=== PATIENT | female | born 1995 | race Caucasian/White ===

== ENCOUNTER 2018-11-04 14:35 | Observation (INO) ==
[2018-11-04 15:19] LABS: Bilirubin,Urine Negative (Negative); Blood,Urine Negative (Negative); Clarity,Urine Cloudy (Clear); Color,Urine Yellow (Yellow); Glucose,Urine (UA) Normal (Normal); Ketones,Urine Negative (Negative); Leukocyte Esterase,Urine Small (Negative); Nitrite,Urine Negative (Negative); PH,Urine 7.5 pH Units (5.0-8.0); Protein,Urine Negative (Neg-Trace); Specific Gravity,Urine 1.011 (1.010-1.025); Urobilinogen,Urine Normal (Normal)
[2018-11-04 15:21] LABS: Bacteria,Urine Moderate per hpf (None-Few); Hyaline Casts,Urine None Seen per lpf (None-Few); RBC,Urine 0-3 per hpf (0-3); Squamous Epithelial Cell,Urine Many per lpf (None-Few); WBC,Urine 15-30 per hpf (0-3)
[2018-11-04 15:28] LABS: Amphetamine Screen,Urine Negative ng/mL (Cutoff=1000); Barbiturate Screen,Urine Negative ng/mL (Cutoff=200); Benzodiazepines Screen,Urine Negative ng/mL (Cutoff=200); Cannabinoid Screen,Urine Negative ng/mL (Cutoff = 50); Cocaine Screen,Urine Negative ng/mL (Cutoff= 300); Opiate Screen,Urine Negative ng/mL (Cutoff=300); Phencyclidine Screen,Urine Negative ng/mL (Cutoff=25)
== END 2018-11-04 16:38 | disposition home or self-care (01) ==
LOC: 1NENULAB → MERGE 14:35
PROVIDERS: ADMIT Obstetrics & Gynecology; ATTEND Obstetrics & Gynecology

== ENCOUNTER 2018-11-06 10:33 | Observation (INO) ==
[2018-11-06 11:22] LABS: Bilirubin,Urine Negative (Negative); Blood,Urine Trace (Negative); Clarity,Urine Cloudy (Clear); Color,Urine Yellow (Yellow); Glucose,Urine (UA) Normal (Normal); Ketones,Urine Negative (Negative); Leukocyte Esterase,Urine Moderate (Negative); Nitrite,Urine Negative (Negative); PH,Urine 7.5 pH Units (5.0-8.0); Protein,Urine Negative (Neg-Trace); Specific Gravity,Urine 1.013 (1.010-1.025); Urobilinogen,Urine Normal (Normal)
[2018-11-06 11:26] LABS: Bacteria,Urine Many per hpf (None-Few); Hyaline Casts,Urine None Seen per lpf (None-Few); RBC,Urine 0-3 per hpf (0-3); Squamous Epithelial Cell,Urine Many per lpf (None-Few); WBC,Urine 50-100 per hpf (0-3)
[2018-11-06 11:30] LABS: Amphetamine Screen,Urine Negative ng/mL (Cutoff=1000); Barbiturate Screen,Urine Negative ng/mL (Cutoff=200); Benzodiazepines Screen,Urine Negative ng/mL (Cutoff=200); Cannabinoid Screen,Urine Negative ng/mL (Cutoff = 50); Cocaine Screen,Urine Negative ng/mL (Cutoff= 300); Opiate Screen,Urine Negative ng/mL (Cutoff=300); Phencyclidine Screen,Urine Negative ng/mL (Cutoff=25)
[2018-11-06 11:54] LABS: Basophils % 0.3 %; Eosinophils # 0.1 K/mcL (0.0-0.6); Eosinophils % 0.9 %; Hemoglobin 11.3 g/dL (11.5-15.4); Immature Granulocytes % 0.5 % (0-4); Mean Corpuscular HGB Conc 34.2 g/dL (31.6-35.5); Mean Corpuscular Hemoglobin 30.8 pg (28.0-33.3); Mean Corpuscular Volume 89.9 fL (83.0-100.0); Mean Platelet Volume 10.2 fL (9.4-12.4); Monocytes # 0.5 K/mcL (0.0-1.3); Monocytes % 6.8 %; Neutrophils # 5.9 K/mcL (1.6-8.9); Platelet Count 127 K/mcL (140-400); Red Blood Count 3.67 M/mcL (3.82-4.97); Red Cell Distribution Width 14.8 % (11.5-14.5); Segmented Neutrophils % 78.5 %; White Blood Count 7.5 K/mcL (4.3-11.1)
[2018-11-06 12:02] LABS: Protein/Creatinine Ratio,Urine 0.41 mg/mg (0.00-0.20)
[2018-11-06 12:14] LABS: Alanine Aminotransferase 9 Units/L (7-52); Aspartate Amino Transferase 12 Units/L (13-39); BUN/Creatinine Ratio 11 (6-26); Blood Urea Nitrogen 6 mg/dL (6-20); Lactate Dehydrogenase 140 Units/L (140-271); Uric Acid 5.6 mg/dL (2.3-7.6); eGFR For African Americans > 60 (> 60); eGFR For Non-African Americans > 60 (> 60)
[2018-11-06 12:36] LABS: Candida DNA Not Detected (Not Detect); Gardnerella DNA Not Detected (Not Detect); Trichomonas DNA Not Detected (Not Detect)
== END 2018-11-06 13:23 | disposition home or self-care (01) ==
LOC: 1NENULAB → MERGE 10:33
PROVIDERS: ADMIT Advanced Practice Midwife; ATTEND Advanced Practice Midwife

== ENCOUNTER 2018-11-13 18:34 | Inpatient (IN) ==
[2018-11-13 13:43] LABS: Basophils % 0.1 %; Eosinophils % 0.4 %; Hematocrit 31.9 % (35.3-44.9); Hemoglobin 11.2 g/dL (11.5-15.4); Immature Granulocytes % 1.1 % (0-4); Lymphocytes % 14.5 %; Mean Corpuscular HGB Conc 35.1 g/dL (31.6-35.5); Mean Corpuscular Hemoglobin 30.7 pg (28.0-33.3); Mean Corpuscular Volume 87.4 fL (83.0-100.0); Mean Platelet Volume 10.2 fL (9.4-12.4); Monocytes # 0.5 K/mcL (0.0-1.3); Monocytes % 6.5 %; Neutrophils # 5.6 K/mcL (1.6-8.9); Platelet Count 130 K/mcL (140-400); Red Blood Count 3.65 M/mcL (3.82-4.97); Red Cell Distribution Width 14.5 % (11.5-14.5); Segmented Neutrophils % 77.4 %; White Blood Count 7.2 K/mcL (4.3-11.1)
[2018-11-13 13:56] LABS: Alanine Aminotransferase 9 Units/L (7-52); Aspartate Amino Transferase 14 Units/L (13-39); BUN/Creatinine Ratio 15 (6-26); Blood Urea Nitrogen 7 mg/dL (6-20); Lactate Dehydrogenase 139 Units/L (140-271); Uric Acid 5.5 mg/dL (2.3-7.6); eGFR For African Americans > 60 (> 60); eGFR For Non-African Americans > 60 (> 60)
[2018-11-13 13:56] LABS: Amphetamine Screen,Urine Negative ng/mL (Cutoff=1000); Barbiturate Screen,Urine Negative ng/mL (Cutoff=200); Benzodiazepines Screen,Urine Negative ng/mL (Cutoff=200); Cannabinoid Screen,Urine Negative ng/mL (Cutoff = 50); Cocaine Screen,Urine Negative ng/mL (Cutoff= 300); Creatinine,Urine 48 mg/dL; Opiate Screen,Urine Negative ng/mL (Cutoff=300); Phencyclidine Screen,Urine Negative ng/mL (Cutoff=25); Protein/Creatinine Ratio,Urine 0.42 mg/mg (0.00-0.20)
[~2018-11-13 18:34] MED LIST: *HR* Nalbuphine 10 MG/ML AMPUL IVP PRN; Famotidine 20 MG/2 ML VIAL IVP PRN; Lidocaine 1% 20 ML MDV INFILT PRN; Metoclopramide 10 MG/2 ML VIAL IVP PRN; Naloxone 0.4 MG/ML INJ IVP PRN; Ondansetron 4 MG/2 ML VIAL IVP PRN
[2018-11-13] MEDS ORDERED: Ringers Solution, Lactated 1,000 ML IVC SCH (18:45)
[2018-11-13] MEDS ORDERED: Epidural Premix (fent/bupiv) 110 ML EP SCH (18:45)
[2018-11-13] MEDS ORDERED: Oxytocin 20 units/ LR 1000 mL 20 UNIT/1,000 ML BAG IVC ONE (20:09)
[2018-11-13 20:24] LABS: Amphetamine Screen,Urine Negative ng/mL (Cutoff=1000); Barbiturate Screen,Urine Negative ng/mL (Cutoff=200); Benzodiazepines Screen,Urine Negative ng/mL (Cutoff=200); Cannabinoid Screen,Urine Negative ng/mL (Cutoff = 50); Cocaine Screen,Urine Negative ng/mL (Cutoff= 300); Opiate Screen,Urine Negative ng/mL (Cutoff=300); Phencyclidine Screen,Urine Negative ng/mL (Cutoff=25)
[2018-11-14] MEDS ORDERED: Oxytocin 20 units/ LR 1000 mL 20 UNIT/1,000 ML BAG IVC ONE (14:32)
[2018-11-14] MEDS ORDERED: Azithromycin 500 MG in 0.9 % Sodium Chloride 250 ML IVPB ONE (20:29)
[2018-11-14] MEDS ORDERED: ceFAZolin 3,000 MG in Water for inj. (sterile) 30 ML IVP ONE (20:29)
[2018-11-14] MEDS ORDERED: *HR* Morphine Sulfate/PF 10 MG/10 ML AMPUL ONE (20:31)
[2018-11-14] MEDS ORDERED: EPHEDrine 50 MG/ML VIAL ONE (20:32)
[2018-11-14] MEDS ORDERED: *HR* FentaNYL (PF) 100 MCG/2 ML VIAL ONE (20:32)
[2018-11-14] MEDS ORDERED: *HR* Oxytocin 10 UNIT/ML VIAL IM ONE (20:33)
[2018-11-14] MEDS ORDERED: Ondansetron 4 MG/2 ML VIAL ONE (20:33)
[2018-11-14] MEDS ORDERED: Ringers Solution, Lactated 2,000 ML ONE (20:44)
[2018-11-14] MEDS ORDERED: *HR* OxyCODONE/APAP 5/325 TABLET PO PRN (20:49)
[2018-11-14] MEDS ORDERED: Ondansetron 4 MG/2 ML VIAL IVP PRN (20:49)
[2018-11-14] MEDS ORDERED: Morphine Sulfate 2 MG/ML SYRINGE IVP PRN (20:49)
[2018-11-14] MEDS ORDERED: Acetaminophen IV 1,000 MG/100 ML INFUS..BTL IVPB ONE (20:50)
[2018-11-15] MEDS ORDERED: Oxytocin 20 units/ LR 1000 mL 20 UNIT/1,000 ML BAG IVC ONE (00:22)
[2018-11-15] MEDS ORDERED: Simethicone 80 MG TAB.CHEW PO PRN (01:26)
[2018-11-15] MEDS ORDERED: *HR* OxyCODONE Immed Rel 5 MG TABLET PO PRN (01:26)
[2018-11-15] MEDS ORDERED: Ondansetron 4 MG/2 ML VIAL IVP PRN (01:26)
[2018-11-15] MEDS ORDERED: Metoclopramide 10 MG/2 ML VIAL IVP PRN (01:26)
[2018-11-15] MEDS ORDERED: Acetaminophen 325 MG TABLET PO SCH (01:26)
[2018-11-15] MEDS ORDERED: Rho Immune Globulin 1,500 UNIT SYRINGE IM ONE (01:26)
[2018-11-15] MEDS ORDERED: Oxytocin 20 units/ LR 1000 mL 20 UNIT/1,000 ML BAG IVC SCH (01:26)
[2018-11-15] MEDS: Ibuprofen 600 MG TABLET PO SCH ×3 (05:20→21:09)
[2018-11-15 06:44] LABS: Basophils % 0.2 %; Eosinophils % 0.1 %; Hematocrit 28.4 % (35.3-44.9); Hemoglobin 9.9 g/dL (11.5-15.4); Immature Granulocytes % 0.9 % (0-4); Lymphocytes % 10.6 %; Mean Corpuscular HGB Conc 34.9 g/dL (31.6-35.5); Mean Corpuscular Hemoglobin 30.6 pg (28.0-33.3); Mean Corpuscular Volume 87.7 fL (83.0-100.0); Monocytes # 0.5 K/mcL (0.0-1.3); Monocytes % 5.2 %; Neutrophils # 7.6 K/mcL (1.6-8.9); Platelet Count 116 K/mcL (140-400); Red Blood Count 3.24 M/mcL (3.82-4.97); Red Cell Distribution Width 14.5 % (11.5-14.5); White Blood Count 9.1 K/mcL (4.3-11.1)
[2018-11-15] MEDS: metroNIDAZOLE 500 MG TABLET PO SCH ×3 (08:03→21:15)
[2018-11-15] MEDS: cephALEXin 500 MG CAPSULE PO SCH ×3 (08:04→21:15)
[2018-11-15] MEDS: Prenatal Vit/FA 1 EACH TABLET PO SCH (08:04)
[2018-11-15] MEDS: Acetaminophen 325 MG TABLET PO SCH (21:08)
[2018-11-16] MEDS: cephALEXin 500 MG CAPSULE PO SCH ×4 (02:05→19:29)
[2018-11-16] MEDS: metroNIDAZOLE 500 MG TABLET PO SCH ×4 (02:05→19:29)
[2018-11-16] MEDS: Ibuprofen 600 MG TABLET PO SCH ×4 (02:13→19:28)
[2018-11-16] MEDS: Acetaminophen 325 MG TABLET PO SCH ×5 (02:13→19:29)
[2018-11-16 07:27] LABS: Basophils % 0.2 %; Eosinophils # 0.1 K/mcL (0.0-0.6); Eosinophils % 1.3 %; Hematocrit 27.3 % (35.3-44.9); Hemoglobin 9.4 g/dL (11.5-15.4); Immature Granulocytes % 0.6 % (0-4); Lymphocytes # 0.9 K/mcL (0.6-4.6); Mean Corpuscular HGB Conc 34.4 g/dL (31.6-35.5); Mean Corpuscular Hemoglobin 31.2 pg (28.0-33.3); Mean Corpuscular Volume 90.7 fL (83.0-100.0); Mean Platelet Volume 9.7 fL (9.4-12.4); Monocytes # 0.5 K/mcL (0.0-1.3); Monocytes % 5.9 %; Neutrophils # 6.9 K/mcL (1.6-8.9); Platelet Count 122 K/mcL (140-400); Red Blood Count 3.01 M/mcL (3.82-4.97); Red Cell Distribution Width 14.9 % (11.5-14.5); White Blood Count 8.5 K/mcL (4.3-11.1)
[2018-11-16 07:44] LABS: Alanine Aminotransferase 8 Units/L (7-52); Aspartate Amino Transferase 13 Units/L (13-39); BUN/Creatinine Ratio 12 (6-26); Blood Urea Nitrogen 7 mg/dL (6-20); Lactate Dehydrogenase 151 Units/L (140-271); Uric Acid 6.1 mg/dL (2.3-7.6); eGFR For African Americans > 60 (> 60); eGFR For Non-African Americans > 60 (> 60)
[2018-11-16] MEDS: Prenatal Vit/FA 1 EACH TABLET PO SCH (09:49)
[2018-11-17] MEDS: Acetaminophen 325 MG TABLET PO SCH ×3 (00:25→11:52)
[2018-11-17] MEDS: Ibuprofen 600 MG TABLET PO SCH ×3 (00:25→11:52)
[2018-11-17 08:42] VITALS: BP 128/89
[2018-11-17] MEDS: cephALEXin 500 MG CAPSULE PO SCH (09:14)
[2018-11-17] MEDS: Prenatal Vit/FA 1 EACH TABLET PO SCH (09:15)
[2018-11-17] MEDS: metroNIDAZOLE 500 MG TABLET PO SCH (09:15)
== END 2018-11-17 12:25 | disposition home or self-care (01) | DRG 788 ==
LOC: 1NENULAB → MERGE 18:34 → 1NENULAB 20:10 → 1NENUOBS 11-15 01:20
PROVIDERS: ADMIT Registered Nurse; ATTEND Registered Nurse

== ENCOUNTER → 2021-07-06 12:36 | Observation (INO) ==
[2021-07-06 10:09] LABS: Basophils % 0.3 %; Eosinophils % 0.4 %; Hematocrit 34.8 % (35.3-44.9); Hemoglobin 11.6 g/dL (11.5-15.4); Immature Granulocytes % 0.6 % (0-4); Lymphocytes % 13.5 %; Mean Corpuscular HGB Conc 33.3 g/dL (31.6-35.5); Mean Corpuscular Hemoglobin 28.5 pg (28.0-33.3); Mean Corpuscular Volume 85.5 fL (83.0-100.0); Mean Platelet Volume 10.1 fL (9.4-12.4); Monocytes # 0.4 K/mcL (0.0-1.3); Monocytes % 5.7 %; Neutrophils # 5.7 K/mcL (1.6-8.9); Platelet Count 156 K/mcL (140-400); Red Blood Count 4.07 M/mcL (3.82-4.97); Red Cell Distribution Width 14.8 % (11.5-14.5); Segmented Neutrophils % 79.5 %; White Blood Count 7.2 K/mcL (4.3-11.1)
[2021-07-06 10:17] LABS: Protein/Creatinine Ratio,Urine 0.27 mg/mg (0.00-0.20)
[2021-07-06 10:28] LABS: Alanine Aminotransferase 7 Units/L (7-52); Aspartate Amino Transferase 11 Units/L (13-39); BUN/Creatinine Ratio 15 (6-26); Blood Urea Nitrogen 8 mg/dL (6-20); Lactate Dehydrogenase 131 Units/L (140-271); Uric Acid 4.4 mg/dL (2.3-7.6); eGFR For African Americans > 60 (> 60); eGFR For Non-African Americans > 60 (> 60)
== END | disposition home or self-care (01) ==
LOC: 1NENULAB
PROVIDERS: ADMIT Obstetrics & Gynecology; ATTEND Obstetrics & Gynecology

== ENCOUNTER 2021-07-16 07:26 | Inpatient (IN) ==
[2021-07-16] MEDS ORDERED: Metoclopramide 10 MG/2 ML VIAL IVP ONE (07:30)
[2021-07-16] MEDS ORDERED: Famotidine 20 MG/2 ML VIAL IVP ONE (07:30)
[2021-07-16] MEDS ORDERED: Ringers Solution, Lactated 1,000 ML IVC ONE (07:30)
[2021-07-16] MEDS ORDERED: CeFAZolin 2,000 MG/120 ML BAG IVPB ONE (07:30)
[2021-07-16] MEDS ORDERED: OXYTOCIN/RINGERS LACTATE 10 UNIT/166.6 ML BAG IVC ONE (07:30)
[2021-07-16] MEDS ORDERED: Ringers Solution, Lactated 1,000 ML ONE ×2 (08:23→09:01)
[2021-07-16 08:31] LABS: Basophils % 0.2 %; Eosinophils % 0.5 %; Hematocrit 35.5 % (35.3-44.9); Hemoglobin 11.9 g/dL (11.5-15.4); Immature Granulocytes % 0.9 % (0-4); Lymphocytes # 1.2 K/mcL (0.6-4.6); Lymphocytes % 15.4 %; Mean Corpuscular HGB Conc 33.5 g/dL (31.6-35.5); Mean Corpuscular Hemoglobin 28.7 pg (28.0-33.3); Mean Corpuscular Volume 85.7 fL (83.0-100.0); Mean Platelet Volume 10.5 fL (9.4-12.4); Monocytes # 0.4 K/mcL (0.0-1.3); Monocytes % 5.2 %; Neutrophils # 6.2 K/mcL (1.6-8.9); Platelet Count 144 K/mcL (140-400); Red Blood Count 4.14 M/mcL (3.82-4.97); Red Cell Distribution Width 14.9 % (11.5-14.5); Segmented Neutrophils % 77.8 %
[2021-07-16] MEDS ORDERED: *HR* HYDROmorphone PF 0.5 MG/0.5 ML SYRINGE IVP PRN (08:32)
[2021-07-16] MEDS ORDERED: Promethazine 6.25 MG in Water for inj. (sterile) 20 ML IVPB PRN (08:32)
[2021-07-16] MEDS ORDERED: Acetaminophen IV 1,000 MG/100 ML BAG IVPB PRN (08:32)
[2021-07-16 08:41] LABS: Influenza A PCR Negative (Negative); Influenza B PCR Negative (Negative); Resp. Syncytial Virus PCR Negative (Negative)
[2021-07-16 08:51] LABS: SARS-CoV-2 by PCR (In House) Negative (Negative)
[2021-07-16] MEDS ORDERED: Ketorolac 30 MG/ML VIAL ONE (09:01)
[2021-07-16] MEDS ORDERED: Ondansetron 4 MG/2 ML VIAL ONE (09:01)
[2021-07-16] MEDS ORDERED: *HR* Midazolam HCl 2 MG/2 ML VIAL ONE (09:01)
[2021-07-16] MEDS ORDERED: *HR* Morphine Sulfate/PF 10 MG/10 ML AMPUL ONE (09:01)
[2021-07-16] MEDS ORDERED: Acetaminophen IV 1,000 MG/100 ML BAG IVPB ONE (09:01)
[2021-07-16] MEDS ORDERED: *HR* FentaNYL (PF) 100 MCG/2 ML VIAL ONE (09:02)
[2021-07-16] MEDS ORDERED: EPHEDrine 50 MG/ML VIAL ONE (09:05)
[2021-07-16] MEDS ORDERED: *HR* Oxytocin 10 UNIT/ML VIAL ONE (09:06)
[2021-07-16 09:48] LABS: Amphetamine Screen,Urine Negative ng/mL (Cutoff=1000); Barbiturate Screen,Urine Negative ng/mL (Cutoff=200); Benzodiazepines Screen,Urine Negative ng/mL (Cutoff=200); Cannabinoid Screen,Urine Negative ng/mL (Cutoff = 50); Cocaine Screen,Urine Negative ng/mL (Cutoff= 300); Opiate Screen,Urine Negative ng/mL (Cutoff=300); Phencyclidine Screen,Urine Negative ng/mL (Cutoff=25)
[2021-07-16] MEDS ORDERED: Ondansetron 4 MG/2 ML VIAL IVP PRN ×2 (10:41→16:41)
[2021-07-16] MEDS ORDERED: *HR* OxyCODONE Immed Rel 5 MG TABLET PO PRN ×2 (10:41→16:41)
[2021-07-16] MEDS ORDERED: Naloxone 0.4 MG/ML INJ IVP PRN ×2 (10:41→16:41)
[2021-07-16] MEDS ORDERED: Rho Immune Globulin 1,500 UNIT SYRINGE IM ONE (10:41)
[2021-07-16] MEDS ORDERED: Simethicone 80 MG TAB.CHEW PO PRN (10:41)
[2021-07-16] MEDS ORDERED: Acetaminophen 325 MG TABLET PO SCH (10:45)
[2021-07-16] MEDS ORDERED: Ringers Solution, Lactated 1,000 ML IVC SCH (10:45)
[2021-07-16] MEDS ORDERED: Ibuprofen 600 MG TABLET PO SCH (13:42)
[2021-07-16] MEDS ORDERED: metroNIDAZOLE 500 MG TABLET PO SCH (15:00)
[2021-07-16] MEDS ORDERED: cephALEXin 500 MG CAPSULE PO SCH (15:00)
[2021-07-16] MEDS: Acetaminophen 325 MG TABLET PO SCH ×2 (17:49→23:00)
[2021-07-16] MEDS: Ibuprofen 600 MG TABLET PO SCH (20:00)
[2021-07-16] MEDS: metroNIDAZOLE 500 MG TABLET PO SCH (20:45)
[2021-07-16] MEDS: cephALEXin 500 MG CAPSULE PO SCH (20:46)
[2021-07-16] MEDS: *HR* Enoxaparin 60 MG/0.6 ML SYRINGE SQ SCH (20:46)
[2021-07-16] MEDS ORDERED: *HR* Enoxaparin 60 MG/0.6 ML SYRINGE SQ SCH (21:00)
[2021-07-17] MEDS: Acetaminophen 325 MG TABLET PO SCH ×4 (04:11→22:55)
[2021-07-17] MEDS: Ibuprofen 600 MG TABLET PO SCH ×4 (04:12→22:54)
[2021-07-17 05:32] LABS: Basophils % 0.1 %; Eosinophils % 0.2 %; Immature Granulocytes % 0.4 % (0-4); Lymphocytes # 1.3 K/mcL (0.6-4.6); Lymphocytes % 15.6 %; Mean Corpuscular HGB Conc 32.2 g/dL (31.6-35.5); Mean Corpuscular Hemoglobin 28.5 pg (28.0-33.3); Mean Corpuscular Volume 88.5 fL (83.0-100.0); Mean Platelet Volume 10.6 fL (9.4-12.4); Monocytes # 0.5 K/mcL (0.0-1.3); Monocytes % 6.1 %; Neutrophils # 6.2 K/mcL (1.6-8.9); Nucleated Red Blood Cells 0.5 /100 WBC (0); Platelet Count 120 K/mcL (140-400); Red Blood Count 3.05 M/mcL (3.82-4.97); Red Cell Distribution Width 15.2 % (11.5-14.5); Segmented Neutrophils % 77.6 %
[2021-07-17 05:38] LABS: Hemoglobin 8.7 g/dL (11.5-15.4)
[2021-07-17] MEDS: *HR* Enoxaparin 60 MG/0.6 ML SYRINGE SQ SCH ×2 (07:52→20:30)
[2021-07-17] MEDS: metroNIDAZOLE 500 MG TABLET PO SCH ×3 (07:53→20:30)
[2021-07-17] MEDS: Simethicone 80 MG TAB.CHEW PO PRN ×2 (07:53→16:18)
[2021-07-17] MEDS: Prenatal Vit/FA 1 EACH TABLET PO SCH (07:54)
[2021-07-17] MEDS: cephALEXin 500 MG CAPSULE PO SCH ×3 (07:54→20:30)
[2021-07-17] MEDS ORDERED: Prenatal Vit/FA 1 EACH TABLET PO SCH (09:00)
[2021-07-17] MEDS: Oxytocin 30 UNIT/503 ML BAG IVC SCH ×6 (10:35→16:06)
[2021-07-17] MEDS: Ringers Solution, Lactated 1,000 ML IVC SCH ×2 (10:38→10:39)
[2021-07-18] MEDS: Acetaminophen 325 MG TABLET PO SCH (05:04)
[2021-07-18] MEDS: Ibuprofen 600 MG TABLET PO SCH (05:04)
[2021-07-18 07:25] VITALS: BP 123/81; PULSE 102; TEMP 98.1; O2SAT 98
[2021-07-18] MEDS: Prenatal Vit/FA 1 EACH TABLET PO SCH (09:13)
[2021-07-18] MEDS: cephALEXin 500 MG CAPSULE PO SCH (09:13)
[2021-07-18] MEDS: metroNIDAZOLE 500 MG TABLET PO SCH (09:14)
== END 2021-07-18 11:00 | disposition home or self-care (01) | DRG 786 ==
LOC: 1NENULAB 07:26 → EDSTATUS 10:00 → 1NENUOBS 14:52
PROVIDERS: ADMIT Obstetrics & Gynecology; ATTEND Obstetrics & Gynecology